=== PATIENT | female | born 1940 | race Caucasian/White ===

== ENCOUNTER 2019-08-06 21:56 | Emergency (ER) | payer MEDICARE ==
--- NOTE | 2019-08-06 22:23 | EDM.PDOC ---
ED HPI GENERAL MEDICAL PROBLEM - General Time Seen by Provider: 08/06/19 22:22 Source of Information: Reports: Patient History Limitations: Reports: No Limitations - History of Present Illness INITIAL COMMENTS - FREE TEXT/NARRATIVE: 78-year-old female with onset of headache at approximately 10:30 AM this morning while she was watching TV. She states it was frontally located and sharp in nature. It was mild initially and she reports that it has gradually worsened through the day. It should be noted that she talked to both of her daughters today and did not mention a headache either time she talked to them. She denies any nausea or vomiting. She's had no arm or leg weakness. She has had no vision problems. No chest pain. No shortness of breath. She has been drinking liquids well. Her appetite is unchanged. She does report the headache is a 10/10. She apparently was just recently changed to another blood pressure medication and we have determined that blood pressure medication is Norvasc 5 mg. She apparently had been on losartan before. However, the daughters both are unsure if the patient has been taking her medications appropriately. No nasal congestion. No sore throat. No trouble swallowing. No arm or leg weakness. There are no other associated signs or symptoms. There are no other modifying factors. Onset: Today Duration: Getting Worse Location: Reports: Head Quality: Reports: Sharp Severity: Moderate (to severe) Improves with: Reports: None Worsens with: Reports: None Context: Reports: Other (As above) Associated Symptoms: Reports: No Other Symptoms Treatments [employer]: Reports: Other (see below) (Nothing) - Related Data Allergies Allergy/AdvReac Type Severity Reaction Status Date / Time No Known Allergies Allergy Verified 08/06/19 22:21 Home Meds: Home Meds amLODIPine [Norvasc] 5 mg PO DAILY 08/06/19 [History] Cephalexin [Keflex] 500 mg PO TID 7 Days #21 capsule 08/07/19 [Rx] Potassium Chloride [Klor-Con M20] 20 meq PO BID 3 Days #6 tab.er 08/07/19 [Rx] predniSONE 40 mg PO WITHBREAKFAST #20 tab 08/07/19 [Rx] Past Medical History Cardiovascular History: Reports: Hypertension - Past Surgical History Female Surgical History: Reports: Hysterectomy Musculoskeletal Surgical History: Reports: Arthroscopic Knee (Both knees) Social & Family History - Tobacco Use Smoking Status *Q: Unknown Ever Smoked (Nonsmoker) - Alcohol Use Alcohol Use History: No - Living Situation & Occupation Occupation: Retired Social History Comment: She lives alone. She has 2 daughters who check on her frequently. ED ROS GENERAL - Review of Systems Review Of Systems: See Below Constitutional: Reports: No Symptoms HEENT: Reports: No Symptoms Respiratory: Reports: No Symptoms Cardiovascular: Reports: No Symptoms GI/Abdominal: Reports: No Symptoms : Reports: No Symptoms Musculoskeletal: Reports: No Symptoms Skin: Reports: No Symptoms Neurological: Reports: Headache Hematologic/Lymphatic: Reports: No Symptoms Immunologic: Reports: No Symptoms ED EXAM, GENERAL - Physical Exam Exam: See Below Exam Limited By: No Limitations General Appearance: Alert, WD/WN, Mild Distress, Other (Does not appear toxic.) Eye Exam: Bilateral Eye: EOMI, Normal Inspection Ears: Normal External Exam, Hearing Grossly Normal Ear Exam: Bilateral Ear: Auricle Normal Nose: Normal Inspection, Normal Mucosa, No Blood Throat/Mouth: Normal Inspection, Normal Oropharynx, Normal Voice, No Airway Compromise Head: Atraumatic, Normocephalic Neck: Normal Inspection, Supple, Non-Tender, Full Range of Motion Respiratory/Chest: No Respiratory Distress, Lungs Clear, Normal Breath Sounds, No Accessory Muscle Use, Chest Non-Tender Cardiovascular: Normal Peripheral Pulses, Regular Rate, Rhythm, No Murmur Peripheral Pulses: 2+: Radial (L), Radial (R), Dorsalis Pedis (L), Dorsalis Pedis (R) GI/Abdominal: Normal Bowel Sounds, Soft, Non-Tender, No Mass Back Exam: Normal Inspection, Full Range of Motion Extremities: Normal Inspection, Normal Range of Motion, Non-Tender, No Pedal Edema, Normal Capillary Refill Neurological: Alert, Oriented, CN II-XII Intact, No Motor/Sensory Deficits Skin Exam: Warm, Dry, Intact, Normal Color, No Rash EKG INTERPRETATION EKG Date: 08/06/19 Time: 22:13 Rhythm: NSR Rate (Beats/Min): 88 [place]: LAD-Left [place] Deviation P-Wave: Present QRS: RBBB ST-T: Normal QT: Prolonged (QTc.) Comparison: NA - No Prior EKG Course - Vital Signs Last Recorded V/S: Last Vital Signs Temp Pulse Resp BP 162/89 H 08/07/19 01:16 Pulse Ox - Orders/Labs/Meds Orders: Active Orders 24 hr Category Date Time Status EKG Documentation Completion [RC] ASDIRECTED Care 08/06/19 22:38 Active Head wo Cont [CT] Stat Exams 08/06/19 23:10 Taken CULTURE URINE [RM] Stat Lab 08/06/19 22:55 Received Potassium Chloride [Klor-Con] Med 08/06/19 23:30 Active 40 meq PO ASDIRECTED EKG 12 Lead [EK] Routine Ther 08/06/19 22:38 Ordered Medication Orders Potassium Chloride (Klor-Con) 40 meq PO ASDIRECTED ROSELIA Last Admin: 08/06/19 23:44 Dose: 40 meq Labs: Laboratory Tests 08/06/19 08/06/19 08/06/19 Range/Units 22:45 22:45 22:55 WBC 5.4 (4.5-12.0) X10-3/uL RBC 3.94 (3.23-5.20) x10(6)uL Hgb 12.5 (11.5-15.5) g/dL Hct 37.3 (30.0-51.3) % MCV 94.5 (80-96) fL MCH 31.8 (27.7-33.6) pg MCHC 33.6 (32.2-35.4) g/dL RDW 13.8 (11.5-15.5) % Plt Count 118 L (125-369) X10(3)uL MPV 7.7 (7.4-10.4) fL Neut % (Auto) 84.5 H (46-82) % Lymph % (Auto) 8.7 L (13-37) % [place] % (Auto) 6.4 (4-12) % Eos % (Auto) 0 L (1.0-5.0) % Baso % (Auto) 0 (0-2) % Neut # (Auto) 4.6 (1.6-8.3) # Lymph # (Auto) 0.5 L (0.6-5.0) # [place] # (Auto) 0.3 (0.0-1.3) # Eos # (Auto) 0.0 (0.0-0.8) # Baso # (Auto) 0.0 (0.0-0.2) # ESR 44 H (0-20) mm/hr Sodium 137 (135-145) mmol/L Potassium 2.5 L* (3.5-5.3) mmol/L Chloride 99 L (100-110) mmol/L Carbon Dioxide 26 (21-32) mmol/L BUN 9 (7-18) mg/dL Creatinine 1.0 (0.55-1.02) mg/dL Est Cr Clr Drug Dosing 44.10 mL/min Estimated GFR (MDRD) 54 L (>60) BUN/Creatinine Ratio 9.0 (9-20) Glucose 149 H (80-116) mg/dL Calcium 9.0 (8.6-10.2) mg/dL Total Bilirubin 1.3 (0.1-1.3) mg/dL AST 27 H (5-25) IU/L ALT 11 L (12-36) U/L Alkaline Phosphatase 111 (56-112) IU/L Total Protein 7.8 (6.0-8.0) g/dL Albumin 3.6 (3.2-4.6) g/dL Globulin 4.2 g/dL Albumin/Globulin Ratio 0.9 Urine Color Yellow (YELLOW) Urine Appearance Cloudy (CLEAR) Urine pH 5.0 (5.0-6.5) Ur Specific [place] 1.015 (1.010-1.025) Urine Protein Negative (NEGATIVE) mg/dL Urine Glucose (UA) Normal (NORMAL) mg/dL Urine Ketones 15 H (NEGATIVE) mg/dL Urine Occult Blood Negative (NEGATIVE) Urine Nitrite Negative (NEGATIVE) Urine Bilirubin Negative (NEGATIVE) Urine Urobilinogen 4 H (NEGATIVE) mg/dL Ur Leukocyte Esterase Negative (NEGATIVE) Urine RBC 0-5 (0-5) Urine WBC 0-5 (0-5) Ur Squamous Epith Cells Occasional (NS,R,O) Urine Bacteria Many H (NS) 08/07/19 Range/Units 00:50 WBC (4.5-12.0) X10-3/uL RBC (3.23-5.20) x10(6)uL Hgb (11.5-15.5) g/dL Hct (30.0-51.3) % MCV (80-96) fL MCH (27.7-33.6) pg MCHC (32.2-35.4) g/dL RDW (11.5-15.5) % Plt Count (125-369) X10(3)uL MPV (7.4-10.4) fL Neut % (Auto) (46-82) % Lymph % (Auto) (13-37) % [place] % (Auto) (4-12) % Eos % (Auto) (1.0-5.0) % Baso % (Auto) (0-2) % Neut # (Auto) (1.6-8.3) # Lymph # (Auto) (0.6-5.0) # [place] # (Auto) (0.0-1.3) # Eos # (Auto) (0.0-0.8) # Baso # (Auto) (0.0-0.2) # ESR (0-20) mm/hr Sodium (135-145) mmol/L Potassium 3.3 L (3.5-5.3) mmol/L Chloride (100-110) mmol/L Carbon Dioxide (21-32) mmol/L BUN (7-18) mg/dL Creatinine (0.55-1.02) mg/dL Est Cr Clr Drug Dosing mL/min Estimated GFR (MDRD) (>60) BUN/Creatinine Ratio (9-20) Glucose (80-116) mg/dL Calcium (8.6-10.2) mg/dL Total Bilirubin (0.1-1.3) mg/dL AST (5-25) IU/L ALT (12-36) U/L Alkaline Phosphatase (56-112) IU/L Total Protein (6.0-8.0) g/dL Albumin (3.2-4.6) g/dL Globulin g/dL Albumin/Globulin Ratio Urine Color (YELLOW) Urine Appearance (CLEAR) Urine pH (5.0-6.5) Ur Specific [place] (1.010-1.025) Urine Protein (NEGATIVE) mg/dL Urine Glucose (UA) (NORMAL) mg/dL Urine Ketones (NEGATIVE) mg/dL Urine Occult Blood (NEGATIVE) Urine Nitrite (NEGATIVE) Urine Bilirubin (NEGATIVE) Urine Urobilinogen (NEGATIVE) mg/dL Ur Leukocyte Esterase (NEGATIVE) Urine RBC (0-5) Urine WBC (0-5) Ur Squamous Epith Cells (NS,R,O) Urine Bacteria (NS) Meds: Medications Generic Name Dose Route Start Last Admin Trade Name [place] PRN Reason Stop Dose Admin Potassium Chloride 40 meq 08/06/19 23:30 08/06/19 23:44 Klor-Con PO 40 meq ASDIRECTED ROSELIA Administration Discontinued Medications Generic Name Dose Route Start Last Admin Trade Name [place] PRN Reason Stop Dose Admin Acetaminophen 1,000 mg 08/06/19 22:39 08/06/19 22:47 Tylenol Extra Strength PO 08/06/19 22:40 1,000 mg ONETIME ONE Administration Amlodipine Besylate 5 mg 08/07/19 00:59 08/07/19 01:16 Norvasc PO 08/07/19 01:00 5 mg ONETIME ONE Administration Cephalexin 500 mg 08/07/19 01:03 08/07/19 01:17 Keflex PO 08/07/19 01:04 500 mg ONETIME ONE Administration Prednisone 60 mg 08/07/19 00:59 08/07/19 01:12 Prednisone PO 08/07/19 01:00 60 mg ONETIME ONE Administration - Radiology Interpretation Free Text/Narrative:: CT scan of the head shows no acute abnormality per the radiologist. - Re-Assessments/Exams Free Text/Narrative Re-Assessment/Exam: 08/07/19 00:50: Patient does have potassium of 2.5. I am unsure why she has a low potassium. She also is having persistently elevated blood pressure with a pressure in the 180/90 range. Her headache is much improved. It is down to a 1/ 10 after the Tylenol. She does have an elevated sedimentation rate at 44. Although sedimentation rate is somewhat low for giant cell arteritis, I am still concerned that this headache could be related to that. She also has some evidence of a urinary tract infection. I will give the patient Norvasc 5 mg by mouth now. I will also give the patient prednisone 60 mg by mouth now and I will culture the patient's urine and start her on Keflex with her first dose of 500 mg to be given now. I am also repeating her potassium level. 08/07/19 01:40: The repeat potassium is 3.3. I will be discharging the patient on potassium replacement orally or the next 3 days. I will also be placing her on Keflex 500 mg 3 times a day for 7 days. I will also place her on prednisone 40 mg daily. I will give her a 10 day supply as she will need to load with her primary provider in regard to further workup and whether she may or may not have giant cell arteritis. I am also going to have them give her Norvasc, 10 mg daily instead of the 5 that she is on currently. She is to follow-up with primary provider by next week. Departure - Departure Time of Disposition: 13:50 Disposition: Home, Self-Care 01 Condition: Good (Improved) Clinical Impression: Hypertension, uncontrolled, Hypokalemia, Elevated sedimentation rate Headache Qualifiers: Headache type: unspecified Headache chronicity pattern: acute headache Intractability: not intractable Qualified Code(s): R51 - Headache UTI (urinary tract infection) Qualifiers: Urinary tract infection type: site unspecified Hematuria presence: without hematuria Qualified Code(s): N39.0 - Urinary tract infection, site not specified - Discharge Information Prescriptions: Cephalexin [Keflex] 500 mg PO TID 7 Days #21 capsule Potassium Chloride [Klor-Con M20] 20 meq PO BID 3 Days #6 tab.er predniSONE 40 mg PO WITHBREAKFAST #20 tab Instructions: Erythrocyte Sedimentation Rate Test, Urinary Tract Infection, Adult, [id number] Referrals: Hernan Babcock MD [Primary Care Provider] - Additional Instructions: Your blood pressure is not well controlled. I am increasing her Norvasc to 2 tablets every morning. I am unsure why you had the headache today. As we discussed, it could be related to an inflammation of an artery beside your ear called temporal arteritis. I am placing you on prednisone to treat this possibility. You also appear to have a urinary tract infection. I am placing you on an antibiotic to treat this (Keflex 500 mg). Your potassium was also low and I am placing you on him for the next 3 days. You will need to follow-up with your primary provider by next week for recheck of your potassium, further tests to confirm or deny this being temporal arteritis and to follow-up your urine infection. You may take Tylenol 1000 mg by mouth every 6 hours as needed for pain/headache. Back to the emergency department for marked increase in pain , unrelenting vomiting, localized area of weakness or numbness or any other concerning sign or symptom. Sepsis Event Note - Focused Exam Vital Signs: Vital Signs BP 08/07/19 01:16 162/89 H Date Exam was Performed: 08/07/19 Time Exam was Performed: 01:44 - My Orders Last 24 Hours: My Active Orders 08/06/19 22:38 EKG Documentation Completion [RC] ASDIRECTED EKG 12 Lead [EK] Routine 08/06/19 22:55 CULTURE URINE [RM] Stat 08/06/19 23:10 Head wo Cont [CT] Stat 08/06/19 23:30 Potassium Chloride [Klor-Con] 40 meq PO ASDIRECTED - Assessment/Plan Last 24 Hours: My Active Orders 08/06/19 22:38 EKG Documentation Completion [RC] ASDIRECTED EKG 12 Lead [EK] Routine 08/06/19 22:55 CULTURE URINE [RM] Stat 08/06/19 23:10 Head wo Cont [CT] Stat 08/06/19 23:30 Potassium Chloride [Klor-Con] 40 meq PO ASDIRECTED
[2019-08-06] MEDS ORDERED: Acetaminophen 500 MG Tab PO ONE (22:39)
[2019-08-06] MEDS ORDERED: Potassium Chloride 20 MEQ Packet PO SCH (23:30)
[2019-08-07] MEDS ORDERED: amLODIPine 5 MG Tab PO ONE (00:59)
[2019-08-07] MEDS ORDERED: predniSONE 20 MG Tab PO ONE (00:59)
[2019-08-07] MEDS ORDERED: Cephalexin 500 MG Cap PO ONE (01:03)
== END 2019-08-07 02:10 | disposition home or self-care (01) ==
LOC: FB.ED 21:56
DX: I10 Essential (primary) hypertension (principal); E87.6 Hypokalemia; N39.0 Urinary tract infection, site not specified; R70.0 Elevated erythrocyte sedimentation rate; Z79.899 Other long term (current) drug therapy
CPT/HCPCS: 36415; 70450; 80053; 81001; 84132; 85025; 85651; 87086; 87088; 87186; 93005; 93010; 99284; 99284-25; A9270-GY

== ENCOUNTER 2019-09-20 12:33 | Emergency (ER) | payer MEDICARE ==
--- NOTE | 2019-09-20 12:53 | EDM.PDOC ---
ED HPI GENERAL MEDICAL PROBLEM - General Stated Complaint: CHEST PAIN, DIZZY Time Seen by Provider: 09/20/19 12:50 Source of Information: Reports: Patient History Limitations: Reports: No Limitations - History of Present Illness INITIAL COMMENTS - FREE TEXT/NARRATIVE: 78-year-old female who presents to the emergency department from [facility]/rehabilitation facility with reports of chest pain and dizziness. According to the patient she has no chest pain right now but apparently she did have some chest pain earlier when they were attempting to do therapy with her at the [facility] for rehabilitation of her right hip fracture. The patient does report that she had an episode of dizziness yesterday that pretty much lasted all through the day and there was chest pain associated with this that lasted for about 4 or 5 hours according to the patient. The dizziness is "just dizzy". She states that she would feel very off balance if she tried to get up and move. Apparently she did not do her therapy yesterday and she spent most of the day in bed yesterday. Apparently a urinalysis was performed yesterday from a catheterized specimen did show some white cells and some bacteria present and a culture was sent which is no growth thus far today. The patient denies any pain now. She rates her pain as a 0/10. No nausea or vomiting. No fevers or chills. No weakness. She apparently has been eating and drinking per normal. No shortness of breath. The patient is a somewhat poor historian but appears in no discomfort at present. She reports that her symptoms have completely resolved and she is symptom free now. There are no other associated signs or symptoms. There are no other modifying factors. Onset: Other (Yesterday. However, the daughter reports that she has been having episodes of dizziness she had her right hip surgery 2 weeks ago.() Duration: Getting Worse Location: Reports: Chest (Her chest pain is gone now), Other (Her dizziness is gone now) Quality: Reports: Other ("Just a pain") Severity: Moderate Improves with: Reports: None Worsens with: Reports: None Context: Reports: Other (As above) Associated Symptoms: Reports: No Other Symptoms (Except as above) Treatments EMERGENCY PREPAREDNESS MANAGER: Reports: Other (see below) (Nothing) - Related Data Allergies Allergy/AdvReac Type Severity Reaction Status Date / Time No Known Allergies Allergy Verified 09/20/19 13:20 Home Meds: Home Meds Acetaminophen [Tylenol Arthritis Pain] 650 mg PO Q8H PRN 09/20/19 [History] Acetaminophen [Tylenol] 650 mg PO Q8H 09/20/19 [History] Bisacodyl [Laxative Suppository] 10 mg RC DAILY PRN 09/20/19 [History] Calcium Citrate/Vitamin D2 [Calcium with Vit D Tablet] 1 each PO BID 09/20/19 [ History] Cholecalciferol (Vitamin D3) [Vitamin D3] 1,000 unit PO DAILY 09/20/19 [History] Enoxaparin [Lovenox] 40 mg SUBCUT DAILY 09/20/19 [History] Magnesium Hydroxide [Milk of Magnesia] 15 ml PO TID PRN 09/20/19 [History] Meclizine [Antivert] 25 mg PO Q6H PRN #16 tab 09/20/19 [Rx] Polyethylene Glycol 3350 [Miralax] 17 gm PO DAILY 09/20/19 [History] amLODIPine [Norvasc] 5 mg PO DAILY 09/20/19 [History] Past Medical History Cardiovascular History: Reports: Hypertension Other Cardiovascular History: Vein stripping. Genitourinary History: Reports: Chronic Renal Insuffiency (Stage III kidney disease) Musculoskeletal History: Reports: Arthritis - Past Surgical History Cardiovascular Surgical History: Reports: Varicose (Vein stripping) Female Surgical History: Reports: Hysterectomy Musculoskeletal Surgical History: Reports: Arthroscopic Knee (Both knees), ORIF (Right hip) Social & Family History - Tobacco Use Smoking Status *Q: Unknown Ever Smoked (Nonsmoker) - Alcohol Use Alcohol Use History: No - Living Situation & Occupation Occupation: Retired ED ROS GENERAL - Review of Systems Review Of Systems: See Below Constitutional: Reports: No Symptoms HEENT: Reports: No Symptoms Respiratory: Reports: No Symptoms Cardiovascular: Reports: Chest Pain GI/Abdominal: Reports: No Symptoms : Reports: No Symptoms Musculoskeletal: Reports: Joint Pain (Right hip pain status post ORIF) Skin: Reports: No Symptoms Neurological: Reports: Dizziness. Denies: Headache Hematologic/Lymphatic: Reports: No Symptoms Immunologic: Reports: No Symptoms ED EXAM, GENERAL - Physical Exam Exam: See Below Exam Limited By: No Limitations General Appearance: Alert, WD/WN, No Apparent Distress Eye Exam: Bilateral Eye: EOMI, Normal Inspection, PERRL Ears: Normal External Exam, Hearing Grossly Normal Ear Exam: Bilateral Ear: Auricle Normal Nose: Normal Inspection, Normal Mucosa, No Blood Throat/Mouth: Normal Inspection, Normal Oropharynx, Normal Voice, No Airway Compromise Head: Atraumatic, Normocephalic Neck: Normal Inspection, Supple, Non-Tender, Full Range of Motion Respiratory/Chest: No Respiratory Distress, Lungs Clear, Normal Breath Sounds, No Accessory Muscle Use, Chest Non-Tender Peripheral Pulses: 2+: Radial (L), Radial (R), Dorsalis Pedis (L), Dorsalis Pedis (R) GI/Abdominal: Normal Bowel Sounds, Soft, Non-Tender, No Organomegaly, No Mass Back Exam: Normal Inspection Extremities: Normal Inspection, Normal Capillary Refill, Pedal Edema (While), Leg Pain (Right proximal leg pain status post ORIF) Neurological: Alert, Oriented, CN II-XII Intact, No Motor/Sensory Deficits Psychiatric: Flat Affect Skin Exam: Warm, Dry, Normal Color, No Rash EKG INTERPRETATION EKG Date: 09/20/19 Time: 13:06 Rhythm: NSR Rate (Beats/Min): 83 [place]: Normal P-Wave: Present QRS: RBBB ST-T: Normal QT: Prolonged Comparison: No Change (No change from EKG performed on 08/06/2019.) Course - Vital Signs Last Recorded V/S: Last Vital Signs Temp 36.6 C 09/20/19 12:50 Pulse 89 09/20/19 12:50 Resp 20 09/20/19 12:50 BP 113/68 09/20/19 12:50 Pulse Ox 97 09/20/19 12:50 - Orders/Labs/Meds Orders: Active Orders 24 hr Category Date Time Status EKG Documentation Completion [RC] ASDIRECTED Care 09/20/19 13:14 Active Brain wo Cont [MR] Stat Exams 09/20/19 14:07 Taken Sodium Chloride 0.9% [Normal Saline] 500 ml Med 09/20/19 15:35 Ordered IV .BOLUS Sodium Chloride 0.9% [Saline Flush] Med 09/20/19 13:13 Active 10 ml FLUSH ASDIRECTED PRN Peripheral IV Insertion Adult [OM.PC] Routine Oth 09/20/19 13:13 Ordered EKG 12 Lead [EK] Routine Ther 09/20/19 13:13 Ordered Medication Orders Sodium Chloride (Normal Saline) 500 mls @ 999 mls/hr IV .BOLUS ONE Stop: 09/20/19 16:05 Sodium Chloride (Saline Flush) 10 ml FLUSH ASDIRECTED PRN PRN Reason: Keep Vein Open Last Admin: 09/20/19 14:18 Dose: 10 ml Labs: Laboratory Tests 09/20/19 09/20/19 09/20/19 Range/Units 13:40 13:40 13:40 WBC 9.8 (4.5-12.0) X10-3/uL RBC 3.38 (3.23-5.20) x10(6)uL Hgb 11.2 L (11.5-15.5) g/dL Hct 33.4 (30.0-51.3) % MCV 98.6 H (80-96) fL MCH 33.0 (27.7-33.6) pg MCHC 33.4 (32.2-35.4) g/dL RDW 16.7 H (11.5-15.5) % Plt Count 219 (125-369) X10(3)uL MPV 8.2 (7.4-10.4) fL Neut % (Auto) 76.5 (46-82) % Lymph % (Auto) 15.5 (13-37) % [place] % (Auto) 5.4 (4-12) % Eos % (Auto) 1 (1.0-5.0) % Baso % (Auto) 2 (0-2) % Neut # (Auto) 7.6 (1.6-8.3) # Lymph # (Auto) 1.5 (0.6-5.0) # [place] # (Auto) 0.5 (0.0-1.3) # Eos # (Auto) 0.1 (0.0-0.8) # Baso # (Auto) 0.1 (0.0-0.2) # Sodium 142 (135-145) mmol/L Potassium 3.8 (3.5-5.3) mmol/L Chloride 103 (100-110) mmol/L Carbon Dioxide 29 (21-32) mmol/L BUN 13 (7-18) mg/dL Creatinine 0.8 (0.55-1.02) mg/dL Est Cr Clr Drug Dosing 55.13 mL/min Estimated GFR (MDRD) > 60 (>60) BUN/Creatinine Ratio 16.3 (9-20) Glucose 107 (80-116) mg/dL Calcium 9.4 (8.6-10.2) mg/dL Magnesium 2.1 (1.8-2.5) mg/dL Total Bilirubin 1.0 (0.1-1.3) mg/dL AST 33 H D (5-25) IU/L ALT 20 D (12-36) U/L Alkaline Phosphatase 151 H (56-112) IU/L Troponin I 7.4 (4.0-60.3) pg/mL Total Protein 8.0 (6.0-8.0) g/dL Albumin 3.2 (3.2-4.6) g/dL Globulin 4.8 g/dL Albumin/Globulin Ratio 0.7 Meds: Medications Generic Name Dose Route Start Last Admin Trade Name Freq PRN Reason Stop Dose Admin Sodium Chloride 500 mls @ 999 mls/hr 09/20/19 15:35 Normal Saline IV 09/20/19 16:05 .BOLUS ONE Sodium Chloride 10 ml 09/20/19 13:13 09/20/19 14:18 Saline Flush FLUSH 10 ml ASDIRECTED PRN Administration Keep Vein Open Discontinued Medications Generic Name Dose Route Start Last Admin Trade Name Freq PRN Reason Stop Dose Admin Gadoteridol 10 ml 09/20/19 14:46 09/20/19 14:52 Prohance IVPUSH 09/20/19 14:47 Not Given ONETIME ONE - Radiology Interpretation Free Text/Narrative:: CT scan of head showed possible lesion in the ruy and MRI of the brain was recommended by the radiologist. MRI of the brain showed no acute abnormality and specifically there was no lesion in the ryu per the radiologist. - Re-Assessments/Exams Free Text/Narrative Re-Assessment/Exam: 09/20/19 15:35: Patient has remained hemodynamically and neurologically stable. She reports that she is hungry. She has had no more dizziness and no more chest pain. Her blood tests are reassuring except for a hematocrit that was 33 compared to 37 from 2 months ago. Her EKG showed no acute abnormality. I saw the patient in July 2019 with dizzy episodes at that time. She had electrolyte abnormalities then and these have resolved. She did have some mild changes and her orthostatic vital signs and I ordered 500 mL as a bolus. We will feed the patient. A urinalysis was performed yesterday and the culture thus far is negative. We will await the culture results before deciding whether antibiotics are appropriate or not. I will provide the patient a prescription for Antivert that she can be given as needed for dizziness. The plan will be to discharge the patient. 09/20/19 15:42: The patient is refusing IV fluids and just wants to go home. I will discharge the patient. Departure - Departure Time of Disposition: 15:45 Disposition: Home, Self-Care 01 Condition: Good (Stable) Clinical Impression: Dizziness of unknown cause, Mild dehydration Chest pain Qualifiers: Chest pain type: unspecified Qualified Code(s): R07.9 - Chest pain, unspecified Prescriptions: Meclizine [Antivert] 25 mg PO Q6H PRN #16 tab PRN Reason: Dizziness Instructions: Nonspecific Chest Pain, [id number], Dehydration, Adult, Easy-to -Read, Dizziness, [id number] Referrals: Hernan Babcock MD [Primary Care Provider] - Additional Instructions: Your blood tests were reassuring. You do have a mild anemia that was not present in July when I saw you. This is most probably secondary to your recent hip surgery but you should follow-up with Dr. Babcock in regard to this. You also appear to be mildly dehydrated and you should increase your fluid intake. I am unsure why you are having the dizzy spells. I am also unsure why you are having the chest pain associated with these. The MRI of your brain showed no lesions or evidence of stroke. Medication as prescribed for dizziness as needed (meclizine 25 mg). Back to the emergency department for worsening chest pain, unrelenting vomiting, high fever or any other concerning sign or symptom. Sepsis Event Note - Focused Exam Vital Signs: Vital Signs Temp Pulse Resp BP Pulse Ox 09/20/19 12:50 36.6 C 89 20 113/68 97 Date Exam was Performed: 09/20/19 Time Exam was Performed: 15:39 - My Orders Last 24 Hours: My Active Orders 09/20/19 13:13 Sodium Chloride 0.9% [Saline Flush] 10 ml FLUSH ASDIRECTED PRN Peripheral IV Insertion Adult [OM.PC] Routine EKG 12 Lead [EK] Routine 09/20/19 13:14 EKG Documentation Completion [RC] ASDIRECTED 09/20/19 14:07 Brain wo Cont [MR] Stat 09/20/19 15:35 Sodium Chloride 0.9% [Normal Saline] 500 ml IV .BOLUS - Assessment/Plan Last 24 Hours: My Active Orders 09/20/19 13:13 Sodium Chloride 0.9% [Saline Flush] 10 ml FLUSH ASDIRECTED PRN Peripheral IV Insertion Adult [OM.PC] Routine EKG 12 Lead [EK] Routine 09/20/19 13:14 EKG Documentation Completion [RC] ASDIRECTED 09/20/19 14:07 Brain wo Cont [MR] Stat 09/20/19 15:35 Sodium Chloride 0.9% [Normal Saline] 500 ml IV .BOLUS
[2019-09-20] MEDS ORDERED: Sodium Chloride 0.9% 10 ML Syringe FLUSH PRN (13:13)
--- NOTE | 2019-09-20 14:38 | CT ---
INDICATION: Dizziness. CT HEAD WITHOUT CONTRAST: Spiral 3.75 mm axial sections were obtained through the brain without contrast with sagittal and coronal reconstructions 09/20/19 and compared with 08/06/19. There is hard beam artifact across the ruy but there is some suspicion that there may be an area of decreased density in the ruy area. MRI may be helpful to eliminate that possibility. There is decreased density in the basal ganglia on the left suggesting a small lacunar infarct, likely present previously. No shift of midline structures was seen. The ventricles are slightly prominent , especially on the right, suggesting a mild degree of central atrophy and the patient's age. There are some indistinct areas of decreased density in the white matter, which appear similar to the previous examination and are compatible with a mild degree of microvascular disease. No bleeding site or hematoma, or other finding to strongly suggest an acute intracranial abnormality were identified. Paranasal sinuses and mastoid air cells appear to be unremarkable. No definite cranial abnormality was seen. Calcifications are noted in the internal carotid arteries and minimally in the right vertebral artery. The orbits appear to be intact. IMPRESSION: 1. No definite acute intracranial abnormality. However, there does appear to be an area of indistinct decreased density in the ruy. This could be artifactual, however, and should be correlated clinically. It may have been present on a previous examination also. 2. Cerebral vascular disease with suggestion of mild microvascular disease. 3. Mild central atrophy. Report was called to Dr. Gage at approximately 14:00 hours. [facility]
[2019-09-20] MEDS ORDERED: Gadoteridol 279.3 MG/ML 10 ML SDV IVPUSH ONE (14:46)
[2019-09-20] MEDS: Sodium Chloride 0.9% 500 ML IV ONE ×2 (15:40→15:46)
== END 2019-09-20 16:10 | disposition home or self-care (01) ==
LOC: FB.ED 12:33
DX: E86.0 Dehydration (principal); R07.9 Chest pain, unspecified; I12.9 Hypertensive chronic kidney disease with stage 1 through stage 4 chronic kidney disease, or unspecified chronic kidney disease; N18.3 Chronic kidney disease, stage 3 (moderate); Z79.899 Other long term (current) drug therapy; Z90.710 Acquired absence of both cervix and uterus
CPT/HCPCS: 36415; 70450; 70551; 80053; 83735; 84484; 85025; 93005; 93010; 99284; 99285-25; J7040